=== PATIENT | female | born 2000 | race Caucasian/White ===

== ENCOUNTER 2023-12-09 18:41 | Emergency (ER) | payer OTHER ==
[~2023-12-09] VITALS: Ht 154.9 cm; Wt 56.7 kg
[2023-12-09 18:56] VITALS: BP_SYST 142; PULSE 131; RESP 18; TEMP 102.9; O2SAT 98
[2023-12-09 19:01] VITALS: BP_SYST 142; PULSE 131; TEMP 102.9; O2SAT 98
[2023-12-09 20:02] LABS: BASOPHILS % (AUTO) 0.1 % (0.0-2.0); HEMATOCRIT 35.7 % (36-48); HEMOGLOBIN 12.8 g/dL (12.0-16.0); LYMPHOCYTES # (AUTO) 0.4 K/uL (1.0-5.5); LYMPHOCYTES % (AUTO) 2.5 % (20.5-51.5); MEAN CORPUSCULAR HEMOGLOBIN 34 pg (27-31); MEAN CORPUSCULAR HGB CONC 36 % (32-36); MEAN CORPUSCULAR VOLUME 94 fL (79.0-98.0); MONOCYTES # (AUTO) 1.2 K/uL (0.0-1.0); MONOCYTES % (AUTO) 7.8 % (1.7-9.3); NEUTROPHILS # (AUTO) 14.1 K/uL (1.8-7.7); NEUTROPHILS % (AUTO) 89.6 % (40.0-70.0); PLATELET COUNT (AUTO) 231 K/uL (130-430); RED BLOOD CELL COUNT(AUTO) 3.79 MIL/uL (4.2-6.2); RED CELL DISTRIBUTION WIDTH 12.2 % (9.0-15.0); WHITE BLOOD COUNT (AUTO) 15.7 K/uL (4.8-10.8)
[2023-12-09] MEDS: ONDANSETRON HCL 4 MG/2 ML VIAL IVP ONE (20:06)
[2023-12-09] MEDS: MORPHINE 4 MG INJ. 4 MG/ML VIAL IVP ONE (20:07)
[2023-12-09 20:17] LABS: ALBUMIN 2.5 g/dL (3.4-4.8); BILIRUBIN,DIRECT 0.3 mg/dL (0.0-0.3); CALCIUM 8.6 mg/dL (8.4-11.0); CREATININE 1.18 mg/dL (0.55-1.30); POTASSIUM 3.7 mmol/L (3.5-5.1); TOTAL PROTEIN, SERUM 7.3 g/dL (6.4-8.3)
[2023-12-09] MEDS: NACL 0.9% 1,000 ML IV ONE (20:33)
[2023-12-09 20:35] LABS: BILIRUBIN,URINE NEGATIVE (NEGATIVE); BLOOD, URINE 3+ (NEGATIVE); CLARITY/URINE CLEAR (CLEAR); COLOR,URINE YELLOW (YELLOW); GLUCOSE,URINE NEGATIVE (NEGATIVE); KETONES,URINE NEGATIVE (NEGATIVE); LEUKOCYTE ESTERASE ,URINE 1+ (NEGATIVE); NITRITE, URINE NEGATIVE (NEGATIVE); PROTEIN URINE 2+ (NEGATIVE)
[2023-12-09 20:49] LABS: BACTERIA,URINE FEW /HPF (None Seen)
[2023-12-09 20:50] LABS: MUCUS,URINE None Seen /LPF (None Seen)
[2023-12-09] MEDS ORDERED: cefTRIAXone 1 GM VIAL ONE (21:05)
[2023-12-09] MEDS: ACETAMINOPHEN 500 MG TABLET PO ONE (21:10)
[2023-12-09] MEDS: cefTRIAXone 1 GM in D5W 50 ML IV ONE (21:11)
[2023-12-09] MEDS ORDERED: TRAM50TA2 PO (21:41)
[2023-12-09] MEDS ORDERED: ONDA-8 TL (21:41)
[2023-12-09] MEDS ORDERED: CEPH-548 PO (21:41)
[2023-12-09 22:31] VITALS: BP_SYST 104; PULSE 107; RESP 16; TEMP 99.5; O2SAT 98
== END 2023-12-09 22:24 | disposition home or self-care (01) ==
LOC: SED 18:41
DX: N12 Tubulo-interstitial nephritis, not specified as acute or chronic (principal); R10.9 Unspecified abdominal pain; Z79.899 Other long term (current) drug therapy
CPT/HCPCS: 99285; 74176; 96365; 96375; 96361; 80076; 80048; 81001; 83690; 85025; 87040; 87086; 87186; 36415; 81025; 83605; 81000; 81015; J0696; J2405; J2270; J7030

== ENCOUNTER 2023-12-19 23:58 | Emergency (ER) | payer OTHER ==
[~2023-12-19] VITALS: Ht 154.9 cm; Wt 56.7 kg
[~2023-12-19 23:58] MED LIST: CEPH-548 PO; ONDA-8 TL; TRAM50TA2 PO
[2023-12-20 00:29] VITALS: BP_SYST 127; PULSE 100; RESP 16; TEMP 98.7; O2SAT 100
[2023-12-20] MEDS ORDERED: iohexoL 350 mgI/mL, 100 ML INFUS..BTL IV ONE (00:59)
[2023-12-20 01:38] LABS: BASOPHILS % (AUTO) 0.4 % (0.0-2.0); EOSINOPHILS % (AUTO) 0.3 % (0.0-4.0); HEMATOCRIT 35.4 % (36-48); HEMOGLOBIN 12.5 g/dL (12.0-16.0); LYMPHOCYTES # (AUTO) 1.7 K/uL (1.0-5.5); LYMPHOCYTES % (AUTO) 16.3 % (20.5-51.5); MEAN CORPUSCULAR HEMOGLOBIN 34 pg (27-31); MEAN CORPUSCULAR HGB CONC 35 % (32-36); MEAN CORPUSCULAR VOLUME 96 fL (79.0-98.0); MONOCYTES # (AUTO) 0.7 K/uL (0.0-1.0); MONOCYTES % (AUTO) 7.3 % (1.7-9.3); NEUTROPHILS # (AUTO) 7.6 K/uL (1.8-7.7); NEUTROPHILS % (AUTO) 75.7 % (40.0-70.0); RED BLOOD CELL COUNT(AUTO) 3.71 MIL/uL (4.2-6.2); WHITE BLOOD COUNT (AUTO) 10.1 K/uL (4.8-10.8)
[2023-12-20 02:18] LABS: PLATELET COUNT (AUTO) 989 K/uL (130-430)
[2023-12-20 02:50] LABS: BILIRUBIN,DIRECT 0.1 mg/dL (0.0-0.3); CALCIUM 8.9 mg/dL (8.4-11.0); CREATININE 0.84 mg/dL (0.55-1.30); POTASSIUM 3.5 mmol/L (3.5-5.1); TOTAL BILIRUBIN 0.1 mg/dL (0.0-1.0); TOTAL PROTEIN, SERUM 7.8 g/dL (6.4-8.3)
[2023-12-20 04:40] VITALS: BP_SYST 119; PULSE 97; RESP 18; TEMP 99; O2SAT 97
== END 2023-12-20 04:40 | disposition home or self-care (01) ==
LOC: SED 23:58
DX: H57.02 Anisocoria (principal); M54.2 Cervicalgia; Z79.899 Other long term (current) drug therapy
CPT/HCPCS: 99285; 80076; 80048; 85025; 36415; 81025; 70496; 70498; 70450; Q9967

== ENCOUNTER 2024-07-10 21:03 | Emergency (ER) | payer OTHER ==
[~2024-07-10] VITALS: Ht 154.9 cm; Wt 58.1 kg
[2024-07-10 21:20] VITALS: BP_SYST 120; PULSE 82; RESP 18; TEMP 97.9; O2SAT 100
[2024-07-10 22:20] LABS: STREPTOCOCCUS A SCREEN (RAPID) NEGATIVE (NEGATIVE)
[2024-07-10 22:25] LABS: COVID19 ANTIGEN SOFIA FIA NEGATIVE (NEGATIVE)
[2024-07-10 22:27] LABS: INFLUENZA TYPE A Negative (NEGATIVE); INFLUENZA TYPE B NEGATIVE (NEGATIVE)
[2024-07-11] MEDS ORDERED: DOXY100T2 PO (00:02)
[2024-07-11] MEDS: ACETAMINOPHEN 500 MG TABLET PO ONE (00:09)
[2024-07-11] MEDS: KETOROLAC TROMETHAMINE 30 MG VIAL IM ONE (00:13)
[2024-07-11 00:26] VITALS: BP_SYST 129; PULSE 74; RESP 20; TEMP 98.6; O2SAT 99
== END 2024-07-11 00:25 | disposition home or self-care (01) ==
LOC: SED 21:03
DX: L73.1 Pseudofolliculitis barbae (principal); J06.9 Acute upper respiratory infection, unspecified; R10.2 Pelvic and perineal pain; Z20.822 Contact with and (suspected) exposure to COVID-19
CPT/HCPCS: 99284; 87426; 86403; 36415; 81025; 87081; 87804 ×2; 96372; J1885